=== PATIENT | female | born 1970 | race Caucasian/White ===

== ENCOUNTER → 2016-12-14 07:40 | Day surgery (SDC) | payer BC ==
--- NOTE | 2016-12-06 18:05 | HP ---
HISTORY AND PHYSICAL: DATE OF ADMISSION: The patient is scheduled for upcoming surgery at [facility] on 12/14/16. CHIEF COMPLAINT: Symptomatic superficial venous reflux disease of the right lower extremity. The patient here at this time for surgical treatment. HISTORY OF PRESENT ILLNESS: This is a 46-year-old female who originally was being seen at the wound clinic here at [facility] for the treatment of nonhealing ulcers. She was treated. 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 They felt that the rash was allergic related. She was treated by curriculum assistant principal. At one point, she was on 20 mg of prednisone daily. This has since been weaned off and she has been off of prednisone since July of 2016. These nonhealing ulcers in part were then evaluated with venous Doppler studies, which revealed reflux disease of both lower extremities. This is back in March of 2016. After that was done, she was referred here to Dr. García for evaluation. She was found to have reflux disease involving the left greater saphenous vein as well as in the right greater saphenous vein. The left leg was more symptomatic with discomfort and swelling and more resistant nonhealing ulcers. So, this was treated first. So , on 11/02/16, she underwent endoluminal closure of the left greater saphenous vein. She has since returned now with significant improvement, decreased swelling, decreased discomfort and all of the previous ulcers have now healed involving her left leg. The venous scan back in March 2016 had revealed reflux disease involving the right greater saphenous vein. There was no evidence of DVT. At this time, she returns for treatment on the right side. She is scheduled for surgery on to undergo endoluminal closure of the right greater saphenous vein to be done by Dr. García at [facility]. Her symptoms on the right leg have included discomfort, achiness of this right leg, swelling. She has no open wounds at this time. All areas have healed and again, she is off prednisone and all medications. PAST MEDICAL HISTORY: Includes the autoimmune vasculitis, history of asthma several years ago. She, at one point, was diagnosed with a pulmonary nodule, but this was following a pneumonia which was clearing. This has since decreased in size and is followed by her primary physician. Her family physician is Dr. Butler in the medical group there. PAST SURGICAL HISTORY: The most recent is endoluminal closure of the left greater saphenous vein by Dr. García on 11/02/16. Other surgeries include two C -sections, status post cholecystectomy laparoscopically, ovarian cyst surgery, and an appendectomy. All anesthesias with these surgeries were uneventful. She had no complications or problems. MEDICATIONS: Currently, she is on new medicines on a regular basis. Does not take aspirin daily. ALLERGIES: She is allergic to DOXYCYCLINE, PREMARIN, and RED DYE where she has developed a rash. FAMILY HISTORY: Really is negative for vein disorders. Her father is at age 51 from an PA. Mother with Alzheimer's and congestive heart failure, and brother from cancer at the age of 62. SOCIAL HISTORY: Socially, she is . She works full-time as a counselor at [employer]. She has three children, two twins, age 12, and a 14-year-old , all in good health. She has no history of alcohol use. No history of tobacco use and no prior history of hepatitis. PHYSICAL EXAMINATION VITAL SIGNS: She is 5 feet 4 inches and her weight was 235 pounds. Her blood pressure is 120/73; her pulse was 102 when she was here. Repeated, it was 93. HEENT: Within normal limits. NECK: Supple. There is no JVD or carotid bruits. Her thyroid is felt to be normal. LUNGS: I listened to her lungs. Lungs are clear throughout. There are no wheezes or rhonchi. HEART: Revealed regular rhythm without a murmur heard. BREAST EXAM: Not done. She said she did have a mammogram and breast evaluation this year, which were normal. ABDOMEN: Soft and nontender. There are no masses. EXTREMITIES: Reveal full range of motion without limitation. The left leg previously had surgery, the swelling has significantly improved. There are residual varicosities, but there has been significant improvement since the surgery. There were no open wounds. The right leg reveals 2+ swelling. There are varicosities present and areas of previously healed skin from prior ulcers, there are no open areas at this time. Pulses distally and dorsalis pedis are present equally. IMPRESSION AND PLAN: 1. Superficial venous reflux disease in the right leg requiring surgical treatment. The patient is scheduled for endoluminal closure of the right greater saphenous vein by Dr. García on 12/14/16. 2. At this time, she does not need a prescription for pain medicine, but has residual pain medicine from her last surgery. CELY VEE [id number]/[facility] #: [id number] MTDParisa
[~2016-12-14 07:40] MED LIST: Buffered Lidocaine 1% SYR 3ML* 3 ML/SYR SYRINGE INTRADERM ONE; Buffered Lidocaine 1% SYR 3ML* 3 ML/SYR SYRINGE ONE; EPINEPHrine AMP 1 MG/ML ONE; Enoxaparin(*) 40 MG/0.4 ML SYR ONE; HYDROcodone/ACETAMIN 5-325 MG* 1 TAB PO PRN; Lidocaine 1% MPF* 2 ML VIAL ONE; Lidocaine 2% PF * 5 ML VIAL ONE; Lidocaine 2% PF* 10 ML AMP ONE; Midazolam* 1 MG/ML 5 ML VIAL (5 MG) ONE; Ondansetron INJ* 2 MG/ML VIAL IV PRN; Ondansetron INJ* 2 MG/ML VIAL ONE; Sodium Bicarbonate 8.4% SYR* 10 ML SYRINGE ONE; ceFAZolin 2 GM PREMIX (*) 2 GM/50 ML BAG IVPB ONE; fentaNYL* 50 MCG/ML 2 ML VIAL (100 MCG VIAL) IV PRN; fentaNYL* 50 MCG/ML 2 ML VIAL (100 MCG VIAL) ONE; oxyCODONE TAB* 5 MG TAB PO PRN
[2016-12-14 11:31] VITALS: BP 117/72
--- NOTE | 2016-12-14 19:57 | OP ---
DATE OF OPERATION: 12/14/16 - [facility] DATE OF : 66 SURGEON: Scot García MD ANESTHESIOLOGIST: Eleuterio Buckner MD ANESTHESIA: Local plus MAC. PRE-OP DIAGNOSIS: Superficial venous reflux disease, right lower extremity secondary to an incompetent right greater saphenous vein. POST-OP DIAGNOSIS: Superficial venous reflux disease, right lower extremity secondary to an incompetent right greater saphenous vein. OPERATIVE PROCEDURE: Radiofrequency closure, right greater saphenous vein. ESTIMATED BLOOD LOSS: None. DESCRIPTION OF PROCEDURE: The patient was taken to the procedure room. Proper markings were done and identification of the site. She was then placed in the supine position. She was prepped and draped in the usual sterile fashion. Lidocaine 1% was used to infiltrate on the medial aspect of the right knee area , percutaneous cannulation of the greater saphenous vein was done under ultrasound guidance. Once the small needle and wire were in place, the needle was exchanged for a 7-Uzbek 11 cm long introducer sheath that was advanced over the wire inside the greater saphenus vein after which we proceeded to remove the introducer and the wire. The sheath was left in place, which was then back bled and flushed with saline. We then proceeded to advance the Fast track radiofrequency catheter inside the greater saphenous vein, positioning the tip of the catheter 2 cm below the saphenofemoral junction. After this was completed, we then proceeded to infiltrate tumescent local anesthesia around the greater saphenous vein and the catheter from the entrance point up to the saphenofemoral junction. Once this was completed, we proceeded to then activate the radiofrequency unit, the first 7 cm were cycled twice and then a single cycle thereafter delivering a total of 7 cycles to the greater saphenous vein. After this was completed, there was evidence of closure of the treated vein by thickening of the wall. However, the common femoral vein appeared to be compressible without any abnormalities or clots. Once this was completed, the small incision was closed with 5-0 Prolene and Steri-strips, a light pressure dressing was applied to the right lower extremity. The patient tolerated the procedure well. She was recovering , given instructions, and recovering in the recovery room. [id number]/[facility] #: [id number] NAVIN
== END | disposition home or self-care (01) ==
LOC: OREAST 07:40
PROVIDERS: ATTEND Surgery
DX: I83.891 Varicose veins of right lower extremity with other complications (principal)
CPT/HCPCS: J0171; J0690; J1650; J2001; J2250; J2405; J3010

== ENCOUNTER 2017-03-18 18:05 | Emergency (ER) | payer BC ==
[2017-03-18 19:27] VITALS: BP 134/67
--- NOTE | 2017-03-18 20:29 | UC ---
Bite Injury/Animal HPI - HPI Summary HPI Summary: Patient was bit by her cat in the left hand this morning. it is now swollen and red - History of Current Complaint Chief Complaint: EDAnimalBite Stated Complaint: CAT BITE Time Seen by Provider: 03/18/17 20:01 Hx Obtained From: Patient Hx Last Menstrual Period: menopause ?: No Severity Currently: Moderate Severity Initially: Mild Onset/Duration: Sudden Onset, Lasting Hours Type of Bite: Pet Has Animal Been Immunized?: Yes Character: Puncture Aggravating Factor(s): Nothing Alleviating Factor(s): Nothing Associated Signs And Symptoms: Positive: Erythema, Swelling Animal Available for Observation: Yes - Allergies/Home Medications Allergies/Adverse Reactions: Allergies Allergy/AdvReac Type Severity Reaction Status Date / Time Clindamycin Allergy Rash Verified 03/18/17 19:27 Conjugated Estrogens Allergy Rash Verified 03/18/17 19:27 [From Premarin] Doxycycline Allergy Rash Verified 03/18/17 19:27 Fluconazole Allergy Rash Verified 03/18/17 19:27 PMH/Surg Hx/FS Hx/Imm Hx Previously Healthy: Yes Endocrine History Of: Denies: Diabetes, Thyroid Disease Cardiovascular History Of: Denies: Cardiac Disorders, Hypertension, Congestive Heart Failure Respiratory History Of: Reports: Asthma - EXERCISE INDUCED IN YOUTH Denies: COPD GI/ History Of: Denies: Ulcer, Renal Disease Psychological History Of: Denies: Anxiety, Depression, Bipolar Disorder, Schizophrenia, Post Traumatic Stress Disorder - Surgical History Surgical History: Yes Surgery Procedure, Year, and Place: PUNCH BX 01/2016, [facility]. 11/02/16, LEFT [place] [facility] [place] O[place]IAN [place]. APPENDECTOMY, 1977. GALLBLADDER, 1994. C SECTION 2004 - Family History Known Family History: Negative: Cardiac Disease, Hypertension - Social History Alcohol Use: None Substance Use Type: None Smoking Status (MU): Never Smoked Tobacco Have You Smoked in the Last Year: No - Immunization History Most Recent Influenza Vaccination: 2009 Most Recent Tetanus Shot: within 10 yrs Most Recent Pneumonia Vaccination: never Review of Systems Constitutional: Negative Skin: Other - erythema Eyes: Negative ENT: Negative Respiratory: Negative Cardiovascular: Negative Gastrointestinal: Negative Genitourinary: Negative Motor: Negative Neurovascular: Negative Musculoskeletal: Negative Neurological: Negative Psychological: Negative All Other Systems Reviewed And Are Negative: Yes Physical Exam Triage Information Reviewed: Yes Appearance: Well-Appearing, Well-Nourished, Pain Distress Vital Signs: Initial Vital Signs Temp 98.7 F 03/18/17 19:20 Pulse 101 03/18/17 19:20 Resp 16 03/18/17 19:20 BP 134/67 03/18/17 19:20 Pulse Ox 99 03/18/17 19:20 Vital Signs Reviewed: Yes Eye Exam: Normal Eyes: Positive: Conjunctiva Clear ENT Exam: Normal ENT: Positive: Hearing grossly normal, Pharynx normal, TMs normal Dental Exam: Normal Neck exam: Normal Neck: Positive: Supple, Nontender, No Lymphadenopathy Respiratory Exam: Normal Respiratory: Positive: Chest non-tender, Lungs clear, Normal breath sounds Cardiovascular Exam: Normal Cardiovascular: Positive: RRR, No Murmur, Pulses Normal Abdominal Exam: Normal Abdomen Description: Positive: Nontender, No Organomegaly, Soft Bowel Sounds: Positive: Present Musculoskeletal Exam: Normal Musculoskeletal: Positive: Strength Intact, ROM Intact, No Edema Neurological Exam: Normal Neurological: Positive: Alert, Muscle Tone Normal Psychological Exam: Normal Skin: Positive: Other - swelling and erythema of the left pinky and hand Bite Injury Course/Dx - Course Course Of Treatment: hx obtained, exam performed, meds reviewed, augmentin prescribed. - Differential Dx/Diagnosis Differential Diagnosis/HQI/PQRI: Cellulitis, Laceration, Puncture, Deep Space Infection Provider Diagnoses: cat bite. cellulitis Discharge - Discharge Plan Condition: Stable Disposition: HOME Prescriptions: Amoxicillin/Clavulanate TAB* [Augmentin TAB 875*] 875 mg PO BID #14 tab Patient Education Materials: Animal Bite (ED) Additional Instructions: 1. take the medication as prescribed, monitor for side effects and stop immediately if you notice any rash. 2. Follow up with any increase in swelling, fever, pain, redness or red streaks. 3. multiple warm soaks throughout the day for the next week.
[2017-03-18] MEDS ORDERED: Amoxicillin/Clavulanate TAB* 875 MG PO ONE (20:38)
== END 2017-03-18 20:41 | disposition home or self-care (01) ==
LOC: UCEAST 18:05
DX: S61.432A Puncture wound without foreign body of left hand, initial encounter (principal); L03.114 Cellulitis of left upper limb; W55.01XA Bitten by cat, initial encounter; Y93.9 Activity, unspecified; Y92.9 Unspecified place or not applicable; Z88.1 Allergy status to other antibiotic agents; Z90.49 Acquired absence of other specified parts of digestive tract
CPT/HCPCS: 99212; A9270-GY; G0463

== ENCOUNTER 2017-10-07 18:01 | Emergency (ER) | payer BC ==
[2017-10-07 18:19] VITALS: BP 150/87
--- NOTE | 2017-10-07 19:24 | UC ---
Respiratory Complaint HPI - HPI Summary HPI Summary: Pt presents with her young son. Pt complains of a dry cough for 1.5weeks. Described as a "tickle" sensation in her throat that causes her to cough. Deep breaths, excessive talking, and lying flat cause her to cough. She has not taken anything OTC. Denies fever, chills, ST, sinus congestion/pain, chest pain , N/V/D/C - History of Current Complaint Chief Complaint: UCRespiratory Stated Complaint: COUGH Time Seen by Provider: 10/07/17 19:23 Hx Obtained From: Patient Hx Last Menstrual Period: menopause Onset/Duration: Gradual Onset Timing: Constant Severity Initially: Mild Severity Currently: Moderate Character: Cough: Nonproductive Aggravating Factors: Deep Breaths, Recumbent Position Associated Signs And Symptoms: Negative: Dyspnea, Fever, Chills, Pleuritic Chest Pain, Wheezing - Allergies/Home Medications Allergies/Adverse Reactions: Allergies Allergy/AdvReac Type Severity Reaction Status Date / Time Clindamycin Allergy Rash Verified 10/07/17 18:19 Conjugated Estrogens Allergy Rash Verified 10/07/17 18:19 [From Premarin] Doxycycline Allergy Rash Verified 10/07/17 18:19 Fluconazole Allergy Rash Verified 10/07/17 18:19 PMH/Surg Hx/FS Hx/Imm Hx Previously Healthy: Yes - Surgical History Surgical History: Yes Surgery Procedure, Year, and Place: [place] [facility] [place] [facility] [place] OVARIAN CYST, 1992. APPENDECTOMY, 1977. GALLBLADDER, 1994. C SECTION 2003, 2004 - Family History Known Family History: Negative: Cardiac Disease, Hypertension - Social History Alcohol Use: None Substance Use Type: None Smoking Status (MU): Never Smoked Tobacco Have You Smoked in the Last Year: No - Immunization History Most Recent Influenza Vaccination: 2009 Most Recent Tetanus Shot: within 10 yrs Most Recent Pneumonia Vaccination: never Review of Systems Constitutional: Negative Skin: Negative Eyes: Negative ENT: Negative Respiratory: Cough Cardiovascular: Negative Gastrointestinal: Negative All Other Systems Reviewed And Are Negative: Yes Physical Exam Triage Information Reviewed: Yes Appearance: Well-Appearing, Well-Nourished Vital Signs: Initial Vital Signs Temp 98.1 F 10/07/17 18:15 Pulse 79 10/07/17 18:15 Resp 18 10/07/17 18:15 BP 150/87 10/07/17 18:15 Pulse Ox 99 10/07/17 18:15 Vital Signs Reviewed: Yes Eyes: Positive: Conjunctiva Clear ENT: Positive: Normal ENT inspection, Hearing grossly normal, Pharynx normal, TMs normal. Negative: Pharyngeal erythema, Nasal congestion, Nasal drainage, TM bulging, TM dull, TM red, Tonsillar swelling, Tonsillar exudate, Sinus tenderness Neck: Positive: Supple, Nontender, No Lymphadenopathy Respiratory: Positive: Chest non-tender, Lungs clear, Normal breath sounds, No respiratory distress, No accessory muscle use Cardiovascular: Positive: RRR, No Murmur, Pulses Normal Skin: Negative: rashes UC Diagnostic Evaluation - Laboratory O2 Sat by Pulse Oximetry: 99 Respiratory Course/Dx - Course Course Of Treatment: It was discussed with the pt at length that her symptoms are likely viral and an antibiotic is not appropriate. She insisted that an antibiotic be prescribed "in case it gets worse". Rx for Ceftin - Differential Dx/Diagnosis Differential Diagnosis/HQI/PQRI: Asthma, Bronchitis, Laryngitis, Lower Resp Infection Provider Diagnoses: Acute Bronchitis Discharge - Discharge Plan Condition: Stable Disposition: HOME Prescriptions: Benzonatate CAP* [Tessalon 100 MG CAP*] 100 mg PO TID PRN #30 cap PRN Reason: Cough Cefuroxime Axetil [Ceftin 250 MG] 250 mg PO BID #14 tab Patient Education Materials: Acute Bronchitis (ED) Referrals: No Primary Care Phys,NOPCP [Primary Care Provider] - Additional Instructions: Rest and drink plenty of fluids. Mucinex OTC for any chest congestion or sinus congestion. If you develop fever, SOB, chest pain, new or worsening symptoms - please call our office or go to ED. Your blood pressure was high at today's visit - please see your PCP within 4 weeks for recheck and re-evaluation.
== END 2017-10-07 19:39 | disposition home or self-care (01) ==
LOC: UCEAST 18:01
DX: J20.9 Acute bronchitis, unspecified (principal); Z88.1 Allergy status to other antibiotic agents; Z88.8 Allergy status to other drugs, medicaments and biological substances
CPT/HCPCS: 99211; G0463

== ENCOUNTER 2019-11-29 11:11 | Emergency (ER) | payer SELFPAY ==
[2019-11-29 11:23] VITALS: BP 157/83
--- NOTE | 2019-11-29 11:42 | UC ---
Throat Pain/Nasal Jose HPI - HPI Summary HPI Summary: awoke with sore throat swollen uvula---swallowing with out difft it hurts--some fever - History of Current Complaint Chief Complaint: UCRespiratory Stated Complaint: SORE THROAT Time Seen by Provider: 11/29/19 11:23 Hx Obtained From: Patient Hx Last Menstrual Period: menopause ?: No Onset/Duration: Sudden Onset Pain Intensity: 6 Pain Scale Used: 0-10 Numeric Cough: Nonproductive Associated Signs & Symptoms: Positive: Fever - Allergies/Home Medications Allergies/Adverse Reactions: Allergies Allergy/AdvReac Type Severity Reaction Status Date / Time clindamycin Allergy Rash Verified 11/29/19 11:23 doxycycline Allergy Rash Verified 11/29/19 11:23 estrogens, conjugated Allergy Rash Verified 11/29/19 11:23 [From Premarin] fluconazole Allergy Rash Verified 11/29/19 11:23 PMH/Surg Hx/FS Hx/Imm Hx Previously Healthy: Yes - Surgical History Surgical History: Yes Surgery Procedure, Year, and Place: PUNCH BX 01/2016, [facility] [place]. 11/02/16, LEFT VERICOSE VEINS, [facility] [place]. OVARIAN CYST, 1992. APPENDECTOMY, 1977. GALLBLADDER, 1994. C SECTION 2003, 2004 - Family History Known Family History: Positive: Cardiac Disease, Hypertension Negative: Diabetes - Social History Occupation: Employed Full-time Lives: With Family Alcohol Use: Rare Substance Use Type: None Smoking Status (MU): Never Smoked Tobacco Have You Smoked in the Last Year: No - Immunization History Most Recent Influenza Vaccination: 2009 Most Recent Tetanus Shot: 2016 Most Recent Pneumonia Vaccination: never Review of Systems All Other Systems Reviewed And Are Negative: Yes Constitutional: Positive: Chills Skin: Positive: Negative Eyes: Positive: Negative ENT: Positive: Sore Throat, Other - swollen uvula Respiratory: Positive: Negative Cardiovascular: Positive: Negative Gastrointestinal: Positive: Negative Genitourinary: Positive: Negative Motor: Positive: Negative Neurovascular: Positive: Negative Musculoskeletal: Positive: Negative Neurological: Positive: Negative Psychological: Positive: Negative Is Patient Immunocompromised?: No Physical Exam Triage Information Reviewed: Yes Appearance: Well-Appearing, No Pain Distress, Obese Vital Signs: Initial Vital Signs Temp 97.5 F 11/29/19 11:19 Pulse 99 11/29/19 11:19 Resp 16 11/29/19 11:19 BP 157/83 11/29/19 11:19 Pulse Ox 95 11/29/19 11:19 Vital Signs Reviewed: Yes Eye Exam: Normal Eyes: Positive: Conjunctiva Clear ENT Exam: Normal ENT: Positive: Normal ENT inspection, Hearing grossly normal, Pharynx normal, Nasal congestion, TMs normal, Uvula midline - /swollen. Negative: Tonsillar swelling, Tonsillar exudate, Trismus, Muffled voice, Hoarse voice, Dental tenderness Dental Exam: Normal Neck exam: Normal Neck: Positive: Supple, Nontender, No Lymphadenopathy Respiratory Exam: Normal Respiratory: Positive: Chest non-tender, Lungs clear, Normal breath sounds, No respiratory distress, No accessory muscle use Cardiovascular Exam: Normal Cardiovascular: Positive: RRR, No Murmur, Pulses Normal, Brisk Capillary Refill Musculoskeletal Exam: Normal Musculoskeletal: Positive: Strength Intact, ROM Intact, No Edema Neurological Exam: Normal Neurological: Positive: Alert, Muscle Tone Normal Psychological Exam: Normal Skin Exam: Normal Diagnostics - Laboratory Lab Results: rst - Throat Pain/Nasal Course/Dx - Course Course Of Treatment: PREDNISONE, AUGMENTIN INCREASE FLUIDS TYLENOL IBUPROFEN PRN FOLLOW WITH PCP THIS WEEK-TO ED IF SYMPTOMS WORSEN OR FAIL TO IMPROVE - Differential Dx/Diagnosis Provider Diagnosis: Uvulitis Discharge ED - Sign-Out/Discharge Documenting (check all that apply): Patient Departure All imaging exams completed and their final reports reviewed: No Studies - Discharge Plan Condition: Stable Disposition: HOME Prescriptions: Amoxicillin/Clavulanate TAB* [Augmentin TAB 875*] 875 mg PO BID #20 tab predniSONE 50 mg TAB [Deltasone 50 mg TAB] 50 mg PO DAILY #3 tab Patient Education Materials: Uvulitis (ED), Hypertension (ED) Referrals: Chriss Root MD [Primary Care Provider] - 1 Week - Billing Disposition and Condition Condition: STABLE Disposition: Home
== END 2019-11-29 11:58 | disposition home or self-care (01) ==
LOC: UCEAST 11:11
DX: K12.2 Cellulitis and abscess of mouth (principal); E66.9 Obesity, unspecified; Z88.1 Allergy status to other antibiotic agents; Z88.8 Allergy status to other drugs, medicaments and biological substances
CPT/HCPCS: 87651; 99212; G0463; J7512

== ENCOUNTER 2019-12-20 21:57 | Emergency (ER) | payer BC ==
--- NOTE | 2019-12-21 03:57 | ED ---
HPI Chest Pain - HPI Summary HPI Summary: The patient is a 49 y/o female presenting to [facility] with a chief complaint of left anterior CP onset last night. She reports that after eating dinner she had left-sided CP radiating into the neck, down the left arm, and into the left scapula. She has since developed mild SOB. She denies any nausea, vomiting, or diarrhea. Symptoms are currently rated 0/10 in severity. The pain is aggravated with deep breathing, movement, and lying down. She has not taken any medications [employer] for treatment. She notes that she had a cough and post-nasal drip recently which have mostly resolved. She also states that she had felt slightly unwell the night before with some mild CP after moving furniture around the house. No previous cardiac history. PMHx: asthma, cholecystectomy, appendectomy, 2x C-sections. FHx: CO father, CHF mother. Nonsmoker, rare EtOH, no substance use. Medications reviewed. Allergies noted. - History of Current Complaint Chief Complaint: EDChestPainROMI Time Seen by Provider: 12/21/19 03:37 Hx Obtained From: Patient Hx Last Menstrual Period: menopause Onset/Duration: Started Hours Ago, Still Present Timing: Lasting Hours Initial Severity: Moderate Current Severity: Mild Pain Intensity: 0 Pain Scale Used: 0-10 Numeric Chest Pain Location: Left Anterior Chest Pain Radiates: Yes Chest Pain Radiates To:: Back - left scapula, Arm - left, Neck Aggravating Factor(s): Position - lying down, Movement, Deep Breaths Alleviating Factor(s): Nothing Associated Signs and Symptoms: Positive: Chest Pain, Shortness of Breath. Negative: Nausea, Cough, Vomiting, Other: - diarrhea - Additional Pertinent History Primary Care Physician: [id number] - Allergy/Home Medications Allergies/Adverse Reactions: Allergies Allergy/AdvReac Type Severity Reaction Status Date / Time clindamycin Allergy Rash Verified 12/20/19 22:09 doxycycline Allergy Rash Verified 12/20/19 22:09 estrogens, conjugated Allergy Rash Verified 12/20/19 22:09 [From Premarin] fluconazole Allergy Rash Verified 12/20/19 22:09 PMH/Surg Hx/FS Hx/Imm Hx Endocrine/Hematology History: Denies: Hx Diabetes, Hx Systemic Lupus Erythematosus, Hx Thyroid Disease Cardiovascular History: Reports: Other Cardiovascular Problems/Disorders - FX LEFT 7TH RIB FROM FAL 11/16/16 Denies: Hx Congestive Heart Failure, Hx Hypertension Respiratory History: Reports: Hx Asthma - EXERCISE INDUCED IN YOUTH Denies: Hx Chronic Obstructive Pulmonary Disease (COPD), Other Respiratory Problems/Disorders GI History: Denies: Hx Ulcer, Other GI Disorders History: Denies: Hx Dialysis, Hx Renal Disease, Other Problems/Disorders Musculoskeletal History: Denies: Hx Rheumatoid Arthritis Sensory History: Reports: Hx Cataracts, Hx Contacts or Glasses - GLASSES AND CONTACTS Denies: Hx Hearing Aid Opthamlomology History: Reports: Hx Cataracts, Hx Contacts or Glasses - GLASSES AND CONTACTS Neurological History: Denies: Other Neuro Impairments/Disorders Psychiatric History: Denies: Hx Anxiety, Hx Depression, Hx Schizophrenia, Hx Bipolar Disorder - Cancer History Hx Chemotherapy: No Hx Radiation Therapy: No - Surgical History Surgical History: Yes Surgery Procedure, Year, and Place: PUNCH BX 01/2016, [facility]. 11/02/16, LEFT VERICOSE VEINS, [facility]. OVARIAN CYST, 1992. APPENDECTOMY, 1977. GALLBLADDER, 1994. C SECTION 2003, 2004 Hx Anesthesia Reactions: No Infectious Disease History: No Infectious Disease History: Denies: Hx Clostridium Difficile, Hx Hepatitis, Hx Human Immunodeficiency Virus (HIV), Hx of Known/Suspected MRSA, Hx Shingles, Hx Tuberculosis, Hx Known/ Suspected VRE, Hx Known/Suspected VRSA, History Other Infectious Disease, Traveled Outside the [place] in Last 30 Days - Family History Known Family History: Positive: Cardiac Disease, Hypertension Negative: Diabetes - Social History Alcohol Use: Rare Hx Substance Use: No Substance Use Type: Reports: None Hx Tobacco Use: No Smoking Status (MU): Never Smoked Tobacco Have You Smoked in the Last Year: No - Additional Comments History Additional Comments: asthma, no cardiac hx Review of Systems - ROS Summary Review of Systems Summary: Home Medications Medication Instructions Recorded Confirmed Type Ibuprofen TAB* [Motrin TAB* 400 MG] 400 mg PO Q6H PRN 12/21/18 11/29/19 History Amoxicillin/Clavulanate TAB* 875 mg PO BID #20 tab 11/29/19 Rx [Augmentin TAB 875*] predniSONE 50 mg TAB [Deltasone 50 50 mg PO DAILY #3 tab 11/29/19 Rx mg TAB] Positive: Chest Pain - left anterior radiating into neck, left arm, and left scapula Negative: Cough Negative: Vomiting, Diarrhea, Nausea All Other Systems Reviewed And Are Negative: Yes Physical Exam - Summary Physical Exam Summary: General: Well-developed, Well-nourished female. No acute distress. HEENT: Normocephalic, Atraumatic. Eyes: Conjuctiva normal, PERRL. Oropharynx: Clear, mucous membranes moist, (-) exudates. Neck: Soft, FROM, (-) lymphadenopathy, (-) thyromegaly, (-) JVD. Cardiovascular: Normal sinus rhythm, (-) murmur. Lungs: Clear to auscultation bilaterally (-) wheezes, (-) rales, (-) rhonchi. Abdomen: Soft, non-tender, non-distended, (-) organomegaly, normal bowel sounds. Back: (-) CVA tenderness Extremities: No edema. Skin: Warm, dry, (-) rash. Neuro: Alert and oriented x3, moves all extremities equally. No ataxia. No gait disturbance. No sensory deficit. No amnesia. Psychiatric: Mood normal, affect normal. Triage Information Reviewed: Yes Vital Signs On Initial Exam: Initial Vitals Temp Pulse Resp BP Pulse Ox 98.4 F 86 15 114/73 97 12/20/19 22:07 12/20/19 22:07 12/20/19 22:07 12/20/19 22:07 12/20/19 22:07 Vital Signs Reviewed: Yes Procedures - Sedation Patient Received Moderate/Deep Sedation with Procedure: No Diagnostics - Vital Signs Vital Signs Temp Pulse Resp BP Pulse Ox 12/21/19 03:15 80 22 129/75 95 12/21/19 03:13 21 12/21/19 02:15 98.9 F 89 15 138/72 94 12/21/19 00:19 98.4 F 84 15 129/79 94 12/20/19 22:07 98.4 F 86 15 114/73 97 - Laboratory Result Diagrams: 12/21/19 04:19 12/21/19 04:19 Lab Statement: Any lab studies that have been ordered have been reviewed, and results considered in the medical decision making process. - Radiology CXR Radiology Interpretation Completed By: ED Physician Summary of Radiographic Findings: No infiltrate. No pleural effusion. ED physician has reviewed and interpreted this report. Pending official read. - EKG 2159 Cardiac Rate: NL - 90 BPM EKG Rhythm: Sinus Rhythm Summary of EKG Findings: EKG at 2159 reveals normal sinus rhythm with rate of 90 BPM, no acute changes, no ischemic changes. This EKG was reviewed and interpreted by Dr. Neal. Re-Evaluation - Re-Evaluation First Eval Re-Evaluation Time: 06:15 Change: Improved Comment: I have discussed results with the patient toradol resolved the pain. Discussed symptoms that warrant immediate return to ED. Chest Pain Course/Dx - Course Course Of Treatment: Patient adminstered Toradol for pain. - Diagnoses Provider Diagnoses: Muscle strain Discharge ED - Sign-Out/Discharge Documenting (check all that apply): Patient Departure - Patient will be discharged home. - Discharge Plan Condition: Stable Disposition: HOME Patient Education Materials: Muscle Strain (DC) Referrals: Chriss Root MD [Primary Care Provider] - 3 Days Additional Instructions: Apply ice to the neck. Take Ibuprofen 2-3 times a day with food. Follow up with your primary care provider in 2-3 days. Return to the emergency department for any new or worsening symptoms. - Attestation Statements Document Initiated by Scribe: Yes Documenting Scribe: Tata Gar Provider For Whom Scribe is Documenting (Include Credential): Dr. Juliette Neal MD Scribe Attestation: I, Tata Gar, scribed for Dr. Juliette Neal MD on 12/21/19 at 0617. Status of Scribe Document: Ready
[2019-12-21] MEDS ORDERED: Ketorolac INJ* 30 MG/ML 1 ML VIAL IM ONE (03:59)
[2019-12-21 04:26] LABS: ABS Basophils 0.1 10^3/ul (0-0.2); ABS Eosinophils 0.2 10^3/ul (0-0.6); ABS Lymphocytes 2.5 10^3/ul (1.0-4.8); ABS Monocytes 0.7 10^3/ul (0-0.8); ABS Neutrophils 4.9 10^3/ul (1.5-7.7); Eosinophil % 2.2 %; Hematocrit 34 % (35-47); Hemoglobin 11.3 g/dL (12.0-16.0); Mean Corpuscular HGB Conc 33 g/dL (31-36); Mean Corpuscular Hemoglobin 28 pg (27-31); Mean Corpuscular Volume 84 fL (80-97); Mean Platelet Volume 8.1 fL (7.4-10.4); Platelet Count 264 10^3/uL (150-450); Red Cell Distribution Width 15 % (10-15); White Blood Count 8.4 10^3/uL (3.5-10.8)
[2019-12-21 04:32] LABS: INR 0.98 (0.82-1.09)
[2019-12-21 04:42] LABS: Albumin 3.8 g/dL (3.2-5.2); Albumin/Globulin Ratio 1.3 (1-3); BUN/Creatinine Ratio 21.5 (8-20); Calcium 8.7 mg/dL (8.6-10.3); EGFR African American 92.8 (>60); EGFR Non-African American 76.7 (>60); Globulin 2.9 g/dL (2-4); Total Bilirubin 0.9 mg/dL (0.2-1.0); Total Protein 6.7 g/dL (6.4-8.9)
[2019-12-21 06:39] VITALS: BP 119/68
--- NOTE | 2019-12-22 13:56 | ED ---
Imaging and Labs Follow Up Follow Up Type: Imaging Labs/Culture Result: Bibasilar atelectasis versus consolidation Patient was afebrile, denied any cough or congestion Patient Communication/Plan: Appear that vital signs were stable and there was no white count. Imaging Result: Bibasilar atelectasis versus consolidation Patient Communication/Plan: Pt was dx with muscle strain, this is unlikely a PNA Provider Diagnoses: Muscle strain
== END 2019-12-21 06:39 | disposition home or self-care (01) ==
LOC: ED 21:57
DX: S29.011A Strain of muscle and tendon of front wall of thorax, initial encounter (principal); X58.XXXA Exposure to other specified factors, initial encounter; Y93.89 Activity, other specified; Y92.009 Unspecified place in unspecified non-institutional (private) residence as the place of occurrence of the external cause; R06.02 Shortness of breath; J98.11 Atelectasis; Z88.1 Allergy status to other antibiotic agents; Z88.8 Allergy status to other drugs, medicaments and biological substances
CPT/HCPCS: 36415; 71046; 80053; 83605; 83880; 84484; 85025; 85610; 96372; 99283; J1885